=== PATIENT | male | born 1975 | race Caucasian/White ===

== ENCOUNTER 2017-03-30 08:31 | Emergency (ER) | payer SELFPAY ==
[~2017-03-30] VITALS: Ht 182.9 cm; Wt 67.1 kg
[~2017-03-30 08:31] MED LIST: ATARAX,VISTARIL25 MG PO; ELIMITE 5% CREA60 GM TP; PREDNISONE20 MG PO
[2017-03-30] MEDS ORDERED: MOTRIN800 MG PO (09:40)
[2017-03-30] MEDS ORDERED: FLEXERIL10 MG PO (09:40)
[2017-03-30] MEDS ORDERED: LIDODERM 5% P1 PATCH TD (09:40)
[2017-03-30 10:46] VITALS: BP 124/68
== END 2017-03-30 10:50 | disposition home or self-care (01) ==
LOC: EME 08:31
DX: S39.012A Strain of muscle, fascia and tendon of lower back, initial encounter (principal); X58.XXXA Exposure to other specified factors, initial encounter; F17.200 Nicotine dependence, unspecified, uncomplicated
CPT/HCPCS: 99281; 99284; J1885; J3010

== ENCOUNTER 2017-12-07 10:47 | Emergency (ER) | payer SELFPAY ==
[~2017-12-07] VITALS: Ht 182.9 cm; Wt 69.6 kg
[~2017-12-07 10:47] MED LIST changes: +FLEXERIL10 MG PO; +LIDODERM 5% P1 PATCH TD; +MOTRIN800 MG PO
[2017-12-07] MEDS ORDERED: ATARAX,VISTARIL50 MG PO (12:58)
[2017-12-07 13:01] VITALS: BP 123/78
== END 2017-12-07 13:02 | disposition home or self-care (01) ==
LOC: EME 10:47
DX: F41.0 Panic disorder [episodic paroxysmal anxiety] (principal); F17.200 Nicotine dependence, unspecified, uncomplicated
CPT/HCPCS: 99281; 99283; Q0177